=== PATIENT | male | born 1995 | race Caucasian/White ===

== ENCOUNTER 2021-09-11 11:44 | Emergency (ER) | payer BC ==
[~2021-09-11] VITALS: Ht 175.3 cm; Wt 74.8 kg
[2021-09-11 11:51] VITALS: BP 143/92
--- NOTE | 2021-09-11 12:57 | NUR ---
PT C/O SUDDEN ONSET OF OF STABBING CHEST PAIN WHILE SMOKING MARIJUANA TODAY. NSR ON MONITOR. NAD
[2021-09-11] MEDS ORDERED: HYDR25CA1 PO (14:07)
[2021-09-11 14:30] VITALS: BP 132/78
--- NOTE | 2021-09-11 14:30 | NUR ---
Patient discharged with v/s stable. Written and verbal after care instructions given and explained. Patient alert, oriented and verbalized understanding of instructions. Ambulatory with steady gait. All questions addressed prior to discharge. ID band removed. Patient advised to follow up with PMD. Rx of vistaril given. Patient educated on indication of medication including possible reaction and side effects. Opportunity to ask questions provided and answered.
== END 2021-09-11 14:30 | disposition home or self-care (01) ==
LOC: MED 11:44
DX: F41.9 Anxiety disorder, unspecified (principal); R07.89 Other chest pain; F17.200 Nicotine dependence, unspecified, uncomplicated; F12.90 Cannabis use, unspecified, uncomplicated; Z79.899 Other long term (current) drug therapy
CPT/HCPCS: 71045; 93005; 99283